=== PATIENT | female | born 2005 | race Two or more races ===

== ENCOUNTER → 2023-02-17 09:59 | Outpatient (BNV) | payer OTHER, SELFPAY ==
--- NOTE | 2023-02-17 10:00 | MHC.OFFVIS ---
Intake Intake Visit Reasons: Amb Documentation Allergies No Known Allergies Allergy (Verified 06/03/22 10:01) HPI HPI Comments History of Present Illness Details student coming in w/ complaints of diarrhea. she states that her stomach was hurting when she got on the bus but it became diarrhea. she doesn't feel terribly well. her eyes are burning. daughter is home w sore throat and fever and cough. she hasn't tested for covid because didn't have any tests. she was given a test to do now - negative and a few boxes of tests to take home. if child is symptomatic she will call/go into [address] and she will get her seen if she is too sick to come to daycare tomorrow. PENDING SALE TO [facility] Medical History Anxiety and depression Dysmenorrhea Eating disorder in remission Vaccination hesitancy by patient Family History Mother No problems noted. Father No problems noted. Sister No problems noted. Sister No problems noted. Sister No problems noted. Brother Asthma Review of Systems Const Details: Counseling visit: All systems reviewed & are unremarkable except as noted in HPI and below Reports as per HPI Resp Reports as per HPI GI Reports as per HPI Musc Reports as per HPI Neuro Reports as per HPI Psych Reports as per HPI Physical Exam Const General: cooperative, healthy appearing and no acute distress Nutritional Appearance: well nourished Orientation/consciousness: oriented to person Limitations: no limitations HEENT Other: wnl Ears: hearing grossly normal bilaterally General nose exam: Normal external nose present (no discharge noted, no congestion) Mouth: oropharynx normal Eyes Other: tearing, no redness noted Chest Other: easy breathing Resp Other: no cough Effort & Inspection: normal respiratory effort and able to speak in complete sentences Skin Other: normal in appearance Neuro General: oriented to person Cognition (Neuro): normal cognition Gait exam (Neuro): Normal gait present Psych Other: no issues noted, she is talking comfortably and her worry doesn't seem out of range for the problems at hand Mental Status: mental status grossly normal Speech and movement: Clear speech present Affect: normal affect Attitude: cooperative Thought process: Normal thought process present Assessment & Plan Assessment & Plan (1) Diarrhea: Code(s): R19.7 - Diarrhea, unspecified Plan: general guidance/teaching, but also encouraged to do covid tests q 48hrs after todays Coding Level of Care Code Est Pt Level 3 (62575) Diagnoses Diarrhea R19.7 Time Spent (min) 15 Comment counseling and teaching
== END ==
PROVIDERS: PCP Nurse Practitioner Family; Visit Provider Nurse Practitioner Family
DX: R19.7 Diarrhea, unspecified (principal)
CPT/HCPCS: 99213

== ENCOUNTER → 2023-05-19 09:50 | Outpatient (BNV) | payer OTHER, SELFPAY ==
--- NOTE | 2023-05-19 09:50 | MHC.OFFVIS ---
Intake Intake Visit Reasons: Amb Documentation Allergies No Known Allergies Allergy (Verified 06/03/22 10:01) HPI HPI Comments History of Present Illness Details c/o stomach pain.? Hurting and nausea.?? Apr 17. went to [facility] ? had a stmach infection ?a little ball in her stomach??this was worse, pain in back and chest . states not gallbladder. (at end of visit she finds a picture of what she was told was wrong ? stomach ulcer?she had 3 medications and finished them all ? hasn?t gone back for follow up)? Hasn?t been pooping a lot. ?Wonders if constipated.? A little yesterday ? but she doesn?t feel that way right now. (long conversation about constipation) Drinks a lot of water/gingerale. Carrots likes spinach but hasn?t had many vegetables (made a soup ? month ago)? discussed fiber. Wt 117 at last appt was at 112.? She used to have an eating disorder so they wanted her to keep weight on. She is no obvious distress but states that she is so uncomfortable can?t stay in school.? Agreed to excuse her and if she is not better tomorrow she will go to md.? PLAN: to home, excused from school until tomorrow if not improved will call her PCP to get worked up further. Teaching done about dietary control both of current symptoms and to avoid constipation. [facility] Medical History Anxiety and depression Dysmenorrhea Vaccination hesitancy by patient Eating disorder in remission Family History Mother No problems noted. Father No problems noted. Sister No problems noted. Sister No problems noted. Sister No problems noted. Brother Asthma Review of Systems Const Details: Counseling visit: All systems reviewed & are unremarkable except as noted in HPI and below Reports as per HPI Resp Reports as per HPI GI Reports as per HPI Musc Reports as per HPI Neuro Reports as per HPI Psych Reports as per HPI Physical Exam Const General: cooperative, healthy appearing and no acute distress Nutritional Appearance: well nourished Orientation/consciousness: oriented to person Limitations: no limitations HEENT Other: wnl Eyes Other: wnl Chest Other: easy breathing Resp Effort & Inspection: able to speak in complete sentences GI Other: benign Inspection: Yes normal to inspection Skin Other: normal in appearance Neuro General: oriented to person Psych Other: see HPI Mental Status: mental status grossly normal Speech and movement: Clear speech present Attitude: cooperative Thought process: Normal thought process present Assessment & Plan Assessment & Plan (1) Abdominal pain: Code(s): R10.9 - Unspecified abdominal pain Plan: PLAN: to home, excused from school until tomorrow if not improved will call her PCP to get worked up further. Teaching done about dietary control both of current symptoms and to avoid constipation. (2) Eating disorder in remission: Code(s): F50.9 - Eating disorder, unspecified Plan: counseling done and onsite staff aware Coding Level of Care Code Est Pt Level 3 (95480) Diagnoses Abdominal pain R10.9 Eating disorder in remission F50.9 Time Spent (min) 20 Comment teaching,counseling, coord care
== END ==
PROVIDERS: PCP Nurse Practitioner Family; Visit Provider Nurse Practitioner Family
DX: R10.9 Unspecified abdominal pain (principal); F50.9 Eating disorder, unspecified
CPT/HCPCS: 99213

== ENCOUNTER → 2023-06-17 09:37 | Outpatient (BNV) | payer OTHER, SELFPAY ==
--- NOTE | 2023-06-17 09:37 | MHC.OFFVIS ---
Intake Intake Visit Reasons: Amb Documentation Allergies No Known Allergies Allergy (Verified 06/03/22 10:01) HPI HPI Comments History of Present Illness Details headache yesterday. wanted to see me yesterday but no one was here - now headache is better. no meds. has stomach ache. pain is upper abdomen - points to the center of upper abdomen. she was on 3 medications but they are finished. she doesn't know the names of them. Amox, and clarithromycin. has one to take before meals but she hasn't been taking those. she doesn't know the name. [facility] and said [facility] for [facility] picker. I called [facility] - no response/wait. asked about NSAID use, states no - except when has cramps (discussed taking tylenol if possible). she is worried she will need surgery, history of eating disorder. I suspect it is difficult for her to time and anticipate meals in order to take the med before eats. PE: no acute distress noted, color good. she appears anxious about the problem/surgery and [facility] Medical History (Updated 06/17/23 @ 09:57 by PRAFUL Bahena) History of gastric ulcer Anxiety and depression Dysmenorrhea Vaccination hesitancy by patient Eating disorder in remission Family History Mother No problems noted. Father No problems noted. Sister No problems noted. Sister No problems noted. Sister No problems noted. Brother Asthma Review of Systems Const Details: Counseling visit: All systems reviewed & are unremarkable except as noted in HPI and below Reports as per HPI Resp Reports as per HPI GI Reports as per HPI Musc Reports as per HPI Neuro Reports as per HPI Psych Reports as per HPI Physical Exam Const General: cooperative, healthy appearing and no acute distress Nutritional Appearance: well nourished Orientation/consciousness: oriented to person Limitations: no limitations HEENT Other: wnl Eyes Other: wnl Chest Other: easy breathing Resp Effort & Inspection: able to speak in complete sentences GI Other: no palp because student anxious and she doesn't appear in physical distress (more anxious) Inspection: Yes normal to inspection Skin Other: normal in appearance Neuro General: oriented to person Psych Other: see HPI Appearance: grossly normal Mental Status: mental status grossly normal Speech and movement: Clear speech present Affect: Anxious affect present Thought process: Normal thought process present Assessment & Plan Assessment & Plan (1) Abdominal pain: Code(s): R10.9 - Unspecified abdominal pain Plan: student will get med from home and either bring it in or will take a pic - better teaching w/ that medication in mind. reassurance and support. 3 tums given now (2) History of gastric ulcer: Code(s): Z87.11 - Personal history of peptic ulcer disease Plan teaching as above, return tomorrow w/ medication or pic of med for further support and teaching Coding Level of Care Code Est Pt Level 3 (91174) Diagnoses Abdominal pain R10.9 History of gastric ulcer Z87.11 Time Spent (min) 15
== END ==
PROVIDERS: PCP Nurse Practitioner Family; Visit Provider Nurse Practitioner Family
DX: R10.9 Unspecified abdominal pain (principal); Z87.11 Personal history of peptic ulcer disease
CPT/HCPCS: 99213

== ENCOUNTER → 2023-06-23 10:44 | Outpatient (BNV) | payer OTHER, SELFPAY ==
--- NOTE | 2023-06-23 10:44 | A.OFFVIS_ITS ---
Intake Intake Visit Reasons: Amb Documentation Allergies No Known Allergies Allergy (Verified 06/03/22 10:01) HPI HPI Comments History of Present Illness Details student is here w/ stomach pain. she has meds: omeprazole 20mg. EXTENSIVE Conversation about her unwillingness to take this medication - she has never taken it, was given 3 pills and took all the other 2 but refused this one. it states on the bottle that she should take w/ meals. she feels (I think) that it will make her eat and she won't do that. she is willing to eat and drink but not here. showed her a bottle of omeprazole acid endoscopy nurse and reviewed the point is to help w/ pain. and to protect her stomach from acid. (also has tylenol 325 in generic name) [facility] Medical History (Updated 06/23/23 @ 10:48 by PRAFUL Bahena) Obsessive thinking History of gastric ulcer Anxiety and depression Dysmenorrhea Vaccination hesitancy by patient Eating disorder in remission Family History Mother No problems noted. Father No problems noted. Sister No problems noted. Sister No problems noted. Sister No problems noted. Brother Asthma Review of Systems Const Details: Counseling visit: All systems reviewed & are unremarkable except as noted in HPI and below Reports as per HPI Resp Reports as per HPI GI Reports as per HPI Musc Reports as per HPI Neuro Reports as per HPI Psych Reports as per HPI Physical Exam Const General: cooperative, healthy appearing and no acute distress Nutritional Appearance: well nourished Orientation/consciousness: oriented to person Limitations: no limitations HEENT Other: wnl Eyes Other: wnl Chest Other: easy breathing Resp Effort & Inspection: able to speak in complete sentences Skin Other: normal in appearance Neuro General: oriented to person Psych Other: see HPI Mental Status: mental status grossly normal Speech and movement: Clear speech present Attitude: cooperative Thought process: Normal thought process present Assessment & Plan Assessment & Plan (1) History of gastric ulcer: Code(s): Z87.11 - Personal history of peptic ulcer disease Plan: long converation w/ student and her onsite counselor supervisor customer services about the issues of taking meds here. (2) Abdominal pain: Code(s): R10.9 - Unspecified abdominal pain Plan: working w/ her on the fear of taking the omeprazole 1) contact her therapist 2) contact her PCP 3)excuse her to go home and take meds and return tomorrow to explore further (3) Obsessive thinking: Code(s): F42.8 - Other obsessive-compulsive disorder Plan: see above Coding Level of Care Code Est Pt Level 4 (13303) Diagnoses History of gastric ulcer Z87.11 Abdominal pain R10.9 Obsessive thinking F42.8 Time Spent (min) 45 Comment extensive counseling and coord of care
== END ==
PROVIDERS: PCP Nurse Practitioner Family; Visit Provider Nurse Practitioner Family
DX: Z87.11 Personal history of peptic ulcer disease (principal); R10.9 Unspecified abdominal pain; F42.8 Other obsessive-compulsive disorder
CPT/HCPCS: 99214

== ENCOUNTER → 2023-07-20 09:47 | Outpatient (BNV) | payer OTHER, SELFPAY ==
--- NOTE | 2023-07-20 09:47 | A.OFFVIS_ITS ---
Intake Intake Visit Reasons: Amb Documentation Allergies No Known Allergies Allergy (Verified 06/03/22 10:01) HPI HPI Comments History of Present Illness Details student here w/ complaints of stuffy nose and sore throat. she is wearing 2 masks in classroom. asked if tested covid - yes, negative but will repeat here. done - negative. conversation w/ her counselor here as student doesn't seem very engaged in the goals for education here. states she is not mandated and not very engaged in any work. she has a lot of anxiety about germs. student tells me that she got sick from her sisters child who had just been vaccainated and now has a fever and she was holding the bsby and now she is sick. 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 but she states that her nose is really runny and her throat quite sore. covid test negative. throat minimal redness. nose is congested. student excused from school - teachign re: symptomatic managment. REPLACED BY [facility] Medical History Obsessive thinking History of gastric ulcer Anxiety and depression Dysmenorrhea Vaccination hesitancy by patient Eating disorder in remission Family History Mother No problems noted. Father No problems noted. Sister No problems noted. Sister No problems noted. Sister No problems noted. Brother Asthma Review of Systems Const Details: Counseling visit: All systems reviewed & are unremarkable except as noted in HPI and below Reports as per HPI ENT Reports as per HPI, Reports nasal congestion and Reports sore throat Card Reports no additional complaints Resp Reports as per HPI and Reports no additional complaints GI Reports as per HPI Musc Reports as per HPI Neuro Reports as per HPI Psych Reports as per HPI Physical Exam Const General: cooperative, healthy appearing and no acute distress Nutritional Appearance: well nourished Orientation/consciousness: oriented to person Limitations: no limitations HEENT Other: wnl Eyes Other: wnl Chest Other: easy breathing Resp Effort & Inspection: able to speak in complete sentences Skin Other: normal in appearance Neuro General: oriented to person Psych Other: see HPI Mental Status: mental status grossly normal Speech and movement: Clear speech present Attitude: cooperative Thought process: Normal thought process present Assessment & Plan Assessment & Plan (1) Upper respiratory infection, viral: Code(s): J06.9 - Acute upper respiratory infection, unspecified (2) Anxiety and depression: Code(s): F41.9 - Anxiety disorder, unspecified; F32.A - Depression, unspecified Plan Support offered if student wants to stay in school - she is minimally engaged even when feeling well, high level of anxiety about public spaces/germs. Support given, teachign done, coord care w/ her on-site counselor and student excused for the day. possible covid w/ negative test - teaching done Coding Level of Care Code Est Pt Level 3 (55977) Diagnoses Upper respiratory infection, viral J06.9 Anxiety and depression F41.9; F32.A Time Spent (min) 20
== END ==
PROVIDERS: PCP Nurse Practitioner Family; Visit Provider Nurse Practitioner Family
DX: J06.9 Acute upper respiratory infection, unspecified (principal); F41.9 Anxiety disorder, unspecified; F32.A Depression, unspecified
CPT/HCPCS: 99213

== ENCOUNTER → 2023-10-07 09:37 | Outpatient (BNV) | payer OTHER, SELFPAY ==
--- NOTE | 2023-10-07 09:37 | MHC.OFFVIS ---
Intake Visit Reasons: Amb Documentation Allergies No Known Allergies Allergy (Verified 06/03/22 10:01) HPI Comments Details: student here because fell 2 days ago on field trip and abraided knee. wants it checked. knee moves fine- no redness, no change in mobility. no swelling. [facility] Medical History Obsessive thinking History of gastric ulcer Anxiety and depression Dysmenorrhea Vaccination hesitancy by patient Eating disorder in remission Family History Mother No problems noted. Father No problems noted. Sister No problems noted. Sister No problems noted. Sister No problems noted. Brother Asthma Review of Systems Const All systems reviewed & are unremarkable except as noted in HPI and below Reports as per HPI Resp Reports as per HPI GI Reports as per HPI Musc Reports as per HPI Neuro Reports as per HPI Psych Reports as per HPI Physical Exam Const General: cooperative, healthy appearing and no acute distress Nutritional Appearance: well nourished Orientation/consciousness: oriented to person Limitations: no limitations HEENT Other: wnl Eyes Other: wnl Chest Other: easy breathing Resp Effort & Inspection: able to speak in complete sentences Skin Other: left knee abraided - mostly scabbed and healing but center of cut still serous-sang drainage. no redness no swelling. no heat. Trauma: abrasion Neuro General: oriented to person Extrem General: Yes normal to inspection, Yes full ROM and Yes normal gait Left lower extremity: normal to inspection, full ROM and edema (no swelling nor edema noted) Psych Other: mild anxiety - reason for visit, indicates anxiety but no anxious affect noted this visit, other than student wearing mask (always) Appearance: well kempt Mental Status: mental status grossly normal Speech and movement: Clear speech present Attitude: cooperative Thought process: Normal thought process present Assessment & Plan Assessment & Plan (1) Abrasion, left knee, initial encounter: Code(s): S80.212A - Abrasion, left knee, initial encounter Category: Medical Plan support to generally anxious student, reassurance and support, bacitracin and bandaid applied Coding Level of Care Code Est Pt Level 2 (32264) Diagnoses Abrasion, left knee, initial encounter S80.212A Time Spent (min) 10 Comment coord care w. onsite staff
== END ==
PROVIDERS: PCP Nurse Practitioner Family; Visit Provider Nurse Practitioner Family
DX: S80.212A Abrasion, left knee, initial encounter (principal)
CPT/HCPCS: 99212

== ENCOUNTER → 2024-02-17 09:37 | Outpatient (BNV) | payer OTHER, SELFPAY ==
--- NOTE | 2024-02-17 09:37 | A.OFFVIS_ITS ---
Intake Visit Reasons: Amb Documentation Allergies No Known Allergies Allergy (Verified 06/03/22 10:01) HPI Comments Details: was seen for cough and was treated w/ robitussin, covid rapid was negative, always masks and continues to mask, cough drops - not excused from school. feeling better today - reviewed phq 9 and crafft screening tools [facility] Medical History Obsessive thinking History of gastric ulcer Anxiety and depression Dysmenorrhea Vaccination hesitancy by patient Eating disorder in remission Family History Mother No problems noted. Father No problems noted. Sister No problems noted. Sister No problems noted. Sister No problems noted. Brother Asthma Review of Systems Const Details: Counseling visit: All systems reviewed & are unremarkable except as noted in HPI and below Reports as per HPI Resp Reports as per HPI GI Reports as per HPI Musc Reports as per HPI Neuro Reports as per HPI Psych Reports as per HPI Physical Exam Const General: cooperative, healthy appearing and no acute distress Nutritional Appearance: well nourished Orientation/consciousness: oriented to person Limitations: no limitations HEENT Other: wnl Eyes Other: wnl Chest Other: easy breathing Resp Effort & Inspection: able to speak in complete sentences Skin Other: normal in appearance Neuro General: oriented to person Psych Other: see HPI Mental Status: mental status grossly normal Speech and movement: Clear speech present Attitude: cooperative Thought process: Normal thought process present Quality Reporting (2019) Depression/Bipolar (159/160/161/177) PHQ-9: Total score: 3 Assessment & Plan Assessment & Plan (1) Upper respiratory infection, viral: Code(s): J06.9 - Acute upper respiratory infection, unspecified Category: Medical (2) Anxiety and depression: Code(s): F41.9 - Anxiety disorder, unspecified; F32.A - Depression, unspecified Category: Medical (3) Counseling and coordination of care: Code(s): Z71.89 - Other specified counseling Category: Medical Plan mood seems stable and good relationship w/ onsite counselor. continue to monitor as student has a history of issues that have gotten in her way Coding Level of Care Code Est Pt Level 2 (67607) Diagnoses Upper respiratory infection, viral J06.9 Anxiety and depression F41.9; F32.A Counseling and coordination of care Z71.89 Additional Codes CRAFFT Assessment Charge - Crafft: CRAFFT [id number] ([id number]) Time Spent (min) 15 Comment general counseling and coord care PHQ-9 Over the last 2 weeks, how often have you been bothered by any of the following problems? 1. Little interest or pleasure in doing things: not at all 2. Feeling down, depressed, or hopeless: not at all 3. Trouble falling or staying asleep, or sleeping too much: more than half the days 4. Feeling tired or having little energy: several days 5. Poor appetite or overeating: not at all 6. Feeling bad about yourself - or that you are a failure or have let yourself or your family down: not at all 7. Trouble concentrating on things, such as reading the newspaper or watching television: not at all 8. Moving or speaking so slowly that other people could have noticed. Or the opposite - being so fidgety or restless that you have been moving around a lot more than usual: not at all 9. Thoughts that you would be better off or of hurting yourself in some way: not at all Total score: 3 Depression Screening Interpretation: Negative Depression Screening Done: Yes [id number] - PHQ-9 Billing: Yes Source: Developed by Drs. Maicol Ni, Neyda Finley, Ayo Pike and colleagues, with an educational kyung from [employer]. CRAFFT Screening Tool PART A: In the PAST 12 MONTHS, did you: Drink any alcohol (more than few sips)? (Do not count sips of alcohol taken during family or latter-day events.): No Smoke any marijuana or hashish?: No Use anything else to get high? (includes illegal drugs, over the counter/prescription drugs, or things that you sniff/baker?): No PART B: If answered YES to ANY above: Have you ever been in a CAR driven by someone (including yourself) who was high or had been using alcohol or drugs?: No Do you ever use alcohol or drugs to RELAX, feel better about yourself, or fit in?: No Do you ever use alcohol or drugs while you are by yourself, or ALONE?: No Do you ever FORGET things while using alcohol or drugs?: No Do your FAMILY or FRIENDS ever tell you that you should cut down on your drinking or drug use?: No Have you ever gotten into TROUBLE while you were using alcohol or drugs?: No BILLIET Assessment Charge Billiet: KAT [id number]
== END ==
PROVIDERS: PCP Nurse Practitioner Family; Visit Provider Nurse Practitioner Family
DX: J06.9 Acute upper respiratory infection, unspecified (principal); F41.9 Anxiety disorder, unspecified; F32.A Depression, unspecified; Z71.89 Other specified counseling
CPT/HCPCS: 96160; 99212

== ENCOUNTER → 2024-02-22 09:44 | Outpatient (BNV) | payer OTHER, SELFPAY ==
--- NOTE | 2024-02-22 09:45 | MHC.OFFVIS ---
Intake Visit Reasons: Amb Documentation Allergies No Known Allergies Allergy (Verified 06/03/22 10:01) HPI Comments Details: student coming in w/ complaints of pain under right breast. she points to her rib cage. states that it is burning and causes her to avoid coughing and eating. (history of eating disorder). teaching done extensively. she is coughing less since last saw provider here last week. (5 negative covid rapid tests). lungs are clear and pain is reproduced by ant/post compression of ribs, minially on lateral compression. 3 ibuprofen given now w encouragement to eat and brace w/ cough (although coughing is not profound) PFSH Medical History Obsessive thinking History of gastric ulcer Anxiety and depression Dysmenorrhea Vaccination hesitancy by patient Eating disorder in remission Family History Mother No problems noted. Father No problems noted. Sister No problems noted. Sister No problems noted. Sister No problems noted. Brother Asthma Review of Systems Const Details: Counseling visit: All systems reviewed & are unremarkable except as noted in HPI and below Reports as per HPI Resp Reports as per HPI, Reports cough (improved, but afraid to cough) and Reports pain with cough GI Details: afraid to eat because of pain in ribs Reports no additional complaints Musc Reports no additional complaints Neuro Reports no additional complaints Psych Reports as per HPI Physical Exam Const General: cooperative, healthy appearing and no acute distress Nutritional Appearance: well nourished Orientation/consciousness: oriented to person Limitations: no limitations HEENT Other: wnl Eyes Other: wnl Chest Other: easy breathing Resp Effort & Inspection: able to speak in complete sentences Skin Other: normal in appearance Neuro General: oriented to person Psych Other: see HPI Mental Status: mental status grossly normal Speech and movement: Clear speech present Attitude: cooperative Thought process: Normal thought process present Assessment & Plan Assessment & Plan (1) Counseling and coordination of care: Code(s): Z71.89 - Other specified counseling Category: Medical (2) Upper respiratory infection, viral: Code(s): J06.9 - Acute upper respiratory infection, unspecified Category: Medical (3) Costochondritis, acute: Code(s): M94.0 - Chondrocostal junction syndrome [Tietze] Category: Medical Plan extensive teaching - to take 3 ibuprofen (600mg) every 6-8 hours for 48 hours if pain continues and brace if coughing, encouraged to eat regardless (history of eating disorder) and to return to [employer], or here if pain continues past this time. Coding Level of Care Code Est Pt Level 3 (93567) Diagnoses Counseling and coordination of care Z71.89 Upper respiratory infection, viral J06.9 Costochondritis, acute M94.0 Time Spent (min) 20 Comment see above
== END ==
PROVIDERS: PCP Nurse Practitioner Family; Visit Provider Nurse Practitioner Family
DX: J06.9 Acute upper respiratory infection, unspecified (principal); M94.0 Chondrocostal junction syndrome [Tietze]; Z71.89 Other specified counseling
CPT/HCPCS: 99213

== ENCOUNTER → 2024-07-27 10:14 | Outpatient (BNV) | payer OTHER, SELFPAY ==
--- NOTE | 2024-07-27 10:14 | MHC.OFFVIS ---
Intake Visit Reasons: Amb Documentation Allergies No Known Allergies Allergy (Verified 06/03/22 10:01) HPI Comments Details: Student coming to me, not feeling well . she didn't want to come to school but attendance is always an issue w/ her. Spoke to her counselor before visit but she was unaware that nani had signed up for me. she presents w/ minor nasal congestion, and a 'sore throat', and a headache. she is not - she is no longer on control but they don't have sex a lot and when they do she is timing it right and he 'pulls out' so she has no concerns. covid test was run in office and is negative. she doesn't like being sick in the school as the other students can be mean about it just stay home if youre sick [facility] Medical History Obsessive thinking History of gastric ulcer Anxiety and depression Dysmenorrhea Vaccination hesitancy by patient Eating disorder in remission Family History Mother No problems noted. Father No problems noted. Sister No problems noted. Sister No problems noted. Sister No problems noted. Brother Asthma Female Reproductive History Menstrual control method: none Review of Systems Const All systems reviewed & are unremarkable except as noted in HPI and below Eyes Reports no additional complaints ENT Details: slightly stuffy nose and sore throat - Reports as per HPI Card Reports no additional complaints Resp Details: no cough Reports no additional complaints Reports no additional complaints Musc Reports no additional complaints Psych Reports no additional complaints Physical Exam Const Other: afebrile (97.8), appears generally ok w/ mask and slight sniffling General: no acute distress Nutritional Appearance: average body habitus Orientation/consciousness: patient oriented x3 HEENT Ears: hearing grossly normal bilaterally General nose exam: Nasal discharge present (minor, clear) Mouth: moist mucous membranes Teeth and gingiva: dentition normal Throat: Yes posterior oropharynx normal (slightly red) Skin General skin exam: no rashes or lesions noted Neuro General: patient oriented x3 Psych Appearance: grossly normal (her baseline - slightly anxious) Assessment & Plan Assessment & Plan (1) Upper respiratory infection, viral: Code(s): J06.9 - Acute upper respiratory infection, unspecified Category: Medical (2) Counseling and coordination of care: Code(s): Z71.89 - Other specified counseling Category: Medical Plan student generally in need of support - so she was excused from sschool and went to counselor - who talked her into staying in class. counselor and I then conferred about approach to student who often has a lot of bodily complaints and anxiety. agreed this was good tactic Coding Level of Care Code Est Pt Level 3 (73553) Diagnoses Upper respiratory infection, viral J06.9 Counseling and coordination of care Z71.89 Time Spent (min) 25 Comment counseling and coord care
== END ==
PROVIDERS: PCP Nurse Practitioner Family; Visit Provider Nurse Practitioner Family
DX: J06.9 Acute upper respiratory infection, unspecified (principal); Z71.89 Other specified counseling
CPT/HCPCS: 99213

== ENCOUNTER → 2024-09-07 10:26 | Outpatient (BNV) | payer OTHER, SELFPAY ==
--- NOTE | 2024-09-07 10:26 | MHC.OFFVIS ---
Intake Visit Reasons: Amb Documentation Allergies No Known Allergies Allergy (Verified 06/03/22 10:01) HPI Comments Details: student is here for test, but I also have phq9 score of 8 which seems new for her. my impression is that student is somewhat compromised in terms of her abilities to understand and convey information 1) concerns: she states that she has a missed period, doesn't want to be . she is confusing re: when her last period is - but it seems that she stopped depo in june - missed appts on and the - and states bled soon after that. she also states that she had a period in july (usually dates her periods by her sisters) and in august when her sister got hers - she didn't. did a test then and was negative.. her test today is negative. discused control as she is very clear she does'nt want ot get . she states that 'he pulls out'. she doesn't want to use condoms because it makes her thing really red. she never tried other methods but 'just want my period'...it is unclear whether she wants to get THIS period and then would consider resuming depo, or wants to get regular periods - and would prefer control pills. she states that she would be able to remember pills. but doesn't want to start something yet - beazuse it would mess up her period. she seems questionable re: her ability to take pills - see below and counselro states that she was VERY reluctant to taking omeprazole for stomach issue (she states that she did eventually take and feels better) 2)states that her primary doc thinks she's depressed and rx'd something. she finds it in a text w/ therapist but she states (in a very circuitous manner) that she has -- a ton of meds and three meds and was prescribed something for anxiety as well - doesn't know that name and also a third med - she doesn't know. I called [facility] and the only current meds relevant (other prn - not related)...was sertraline 25mg once a day, and zyrtec 10 once a day, she completed omeprazole for 7 days. and Escitalopram was he presumes d/c'd and replaced w/ sertrainline. she takes sertraline ONLY when she feels bad. Long conversation about this and repeated w/ counselor present so she could work w her on this issue. discussed the importnace of being consistent w what she is taking and what she is telling doc she is taking. re: depression - she states that I get mad a lot, grumpy, cryin - yestrday - she states she cries when she is mad. she is unable to present a linear history. dififculty falling asleep - even this is hard to undersatnd. states tyring to get child to sleep in same room, but then states that child is asleep and she can't fall asleep - was up 10-2 last night. states watches television and then states that all she does is close her eyes to sleep. discussed w/ her counselor [facility] Medical History Obsessive thinking History of gastric ulcer Anxiety and depression Dysmenorrhea Vaccination hesitancy by patient Eating disorder in remission Family History Mother No problems noted. Father No problems noted. Sister No problems noted. Sister No problems noted. Sister No problems noted. Brother Asthma Review of Systems Const Details: Counseling visit: All systems reviewed & are unremarkable except as noted in HPI and below Reports as per HPI Resp Reports as per HPI GI Reports as per HPI Musc Reports as per HPI Neuro Reports as per HPI Psych Reports as per HPI Physical Exam Const General: cooperative, healthy appearing and no acute distress Nutritional Appearance: well nourished Orientation/consciousness: oriented to person Limitations: no limitations HEENT Other: wnl Eyes Other: wnl Chest Other: easy breathing Resp Effort & Inspection: able to speak in complete sentences Skin Other: normal in appearance Neuro General: oriented to person Psych Other: see HPI Mental Status: mental status grossly normal Speech and movement: Clear speech present Attitude: cooperative Thought process: Normal thought process present Assessment & Plan Assessment & Plan (1) Counseling and coordination of care: Code(s): Z71.89 - Other specified counseling Category: Medical (2) Obsessive thinking: Code(s): F42.8 - Other obsessive-compulsive disorder Category: Medical (3) Anxiety and depression: Code(s): F41.9 - Anxiety disorder, unspecified; F32.A - Depression, unspecified Category: Medical (4) control counseling: Code(s): Z30.09 - Encounter for other general counseling and advice on contraception Category: Medical (5) Irregular menses: Code(s): N92.6 - Irregular menstruation, unspecified Category: Medical Plan challenging counseling - because student is known to have obsessive concerns - tried to incorportate that into discussion of taking daily meds vs 'when needed'. student is difficult historian - seems because of limited understanding and anxiety complicating. so we met for quite a while and then repeated wtih her counselor who has a long standing relationship w/ student. plan is to continue to monitor all these areas as a team Orders: Orders AMB HCG Urine Test Today N92.6 - Irregular menstruation, unspecified, Z32.02 - Encounter for test, result negative Coding Level of Care Code Est Pt Level 5 (08612) Diagnoses Counseling and coordination of care Z71.89 Obsessive thinking F42.8 Anxiety and depression F41.9; F32.A control counseling Z30.09 Irregular menses N92.6 Time Spent (min) 60 Comment extensive counseling and coord care
== END ==
PROVIDERS: PCP Nurse Practitioner Family; Visit Provider Nurse Practitioner Family
DX: N92.6 Irregular menstruation, unspecified (principal); F41.9 Anxiety disorder, unspecified; F42.8 Other obsessive-compulsive disorder; F32.A Depression, unspecified; Z30.09 Encounter for other general counseling and advice on contraception; Z71.89 Other specified counseling
CPT/HCPCS: 99215; 99417

== ENCOUNTER → 2024-09-27 09:42 | Outpatient (BNV) | payer OTHER, SELFPAY ==
--- NOTE | 2024-09-27 09:42 | A.OFFVIS_ITS ---
Intake Visit Reasons: Amb Documentation Allergies No Known Allergies Allergy (Verified 06/03/22 10:01) HPI Comments Details: student wants preg test. she feels like throwing up all the time (history of GI issue and not taking the omeprazole as directed) but primarily she is worreid about and wants to rule that out. she says that she had depo but june, got period in jul but nothing in august or september yet. they have sex - he pulls out , no condoms used because they irritate her, (gave her non- latex condoms to use vbut she hasn't used them). he doesn't want her either. and she is worried that if she is it will be hard to tell him. discussed her feelings about before test run - she says if she is she would cope with it (no space in apartment she is sharing a room w/ her daughter, wanted to finish school etc) so she doesn't really want to get - reinforced her behavior in that she will likely get if not using some control - which could just be the non-latex condoms. she wants a blood test done to be sure that she isn't . last unprotected sex was maybe 2-3 weeks ago as he doesn't live w/ her. she has a follow up appt Sep 06 w/ her pcp in [facility]. [facility] Medical History Obsessive thinking History of gastric ulcer Anxiety and depression Dysmenorrhea Vaccination hesitancy by patient Eating disorder in remission Family History Mother No problems noted. Father No problems noted. Sister No problems noted. Sister No problems noted. Sister No problems noted. Brother Asthma Review of Systems Const Details: Counseling visit: All systems reviewed & are unremarkable except as noted in HPI and below Reports as per HPI Resp Reports as per HPI GI Reports as per HPI Musc Reports as per HPI Neuro Reports as per HPI Psych Reports as per HPI Physical Exam Const General: cooperative, healthy appearing and no acute distress Nutritional Appearance: well nourished Orientation/consciousness: oriented to person Limitations: no limitations HEENT Other: wnl Eyes Other: wnl Chest Other: easy breathing Resp Effort & Inspection: able to speak in complete sentences Skin Other: normal in appearance Neuro General: oriented to person Psych Other: see HPI Mental Status: mental status grossly normal Speech and movement: Clear speech present Attitude: cooperative Thought process: Normal thought process present Assessment & Plan Assessment & Plan (1) Irregular menses: Code(s): N92.6 - Irregular menstruation, unspecified Category: Medical (2) Counseling and coordination of care: Code(s): Z71.89 - Other specified counseling Category: Medical (3) control counseling: Code(s): Z30.09 - Encounter for other general counseling and advice on contraception Category: Medical Plan consultation w/ her counselor prior to and after visit. student is using no control and coming for test. extensive counseling done during vist to try and connect her behaviors w/ her intention - she requests blood test, this was ordered / counselor will continue wtih this counseling idea trying to get her to commit to a more reliable method of control to match the intention of not desiring . Orders: Orders AMB HCG Urine Test Today N92.6 - Irregular menstruation, unspecified, Z32.02 - Encounter for test, result negative HCG Quantitative Today N92.6 - Irregular menstruation, unspecified Coding Level of Care Code Est Pt Level 4 (05712) Diagnoses Irregular menses N92.6 Counseling and coordination of care Z71.89 control counseling Z30.09 Time Spent (min) 35 Comment counseling and coord care
== END ==
PROVIDERS: PCP Nurse Practitioner Family; Visit Provider Nurse Practitioner Family
DX: N92.6 Irregular menstruation, unspecified (principal); Z71.89 Other specified counseling; Z30.09 Encounter for other general counseling and advice on contraception
CPT/HCPCS: 99214

== ENCOUNTER 2024-09-27 11:00 | Outpatient (REF) | payer OTHER, SELFPAY ==
[2024-09-27 12:45] LABS: HCG Quantitative < 2 mIU/mL
== END 2024-09-27 11:01 | disposition home or self-care (01) ==
LOC: HO.LAB 11:00
PROVIDERS: Visit Provider Nurse Practitioner Family
DX: N92.6 Irregular menstruation, unspecified (principal)
CPT/HCPCS: 36415; 84702

== ENCOUNTER → 2024-11-08 10:08 | Outpatient (BNV) | payer OTHER, SELFPAY ==
--- NOTE | 2024-11-08 10:08 | A.OFFVIS_ITS ---
Intake Visit Reasons: Amb Documentation Allergies No Known Allergies Allergy (Verified 06/03/22 10:01) HPI Comments Details: student states that she just pooped and saw blood - on TP and a little in the bowl. she is worried. she hasn't gotten her period yet as well. she has appt w/ pcp to discuss this november 22. 1) rectal bleed: just noted today. she felt inside and feels a little 'ball'. no itching. she is constipated and this morning was trying hard to poop and pooped a small round ball and wiped noted blood. previous episode her doctor diagnosed 'those little creatures' - no itching noted - just pain. she states that her appetite is limited - she doesn't like to eat first thing in the morning and doesn't feel much like eating at all. exam - [id number] - no hemmorhoids seen and pt refused internal exam in school and anxiety 2) irreg menses: bhcg was neg - last month - she will see her pcp - but we ran a hcg urine today - was negative. she had sex I think yestrday [facility] Medical History (Updated 11/08/24 @ 10:15 by PRAFUL Bahena) Chronic constipation Rectal bleeding Obsessive thinking History of gastric ulcer Anxiety and depression Dysmenorrhea Vaccination hesitancy by patient Eating disorder in remission Family History Mother No problems noted. Father No problems noted. Sister No problems noted. Sister No problems noted. Sister No problems noted. Brother Asthma Female Reproductive History Menstrual control method: none Review of Systems Const Details: Counseling visit: All systems reviewed & are unremarkable except as noted in HPI and below Reports as per HPI Resp Reports as per HPI GI Reports as per HPI Musc Reports as per HPI Neuro Reports as per HPI Psych Reports as per HPI Physical Exam Const General: cooperative, healthy appearing and no acute distress Nutritional Appearance: well nourished Orientation/consciousness: oriented to person Limitations: no limitations HEENT Other: wnl Eyes Other: wnl Chest Other: easy breathing Resp Effort & Inspection: able to speak in complete sentences GI Inspection: Yes normal to inspection Palpation (GI): Soft to palpation Rectal Exam - Female: deferred (pt refused internal see hpi), visual inspection normal, normal sphincter tone and hemorrhoids (none visualized but student stated that she felt one inside - refused exam) External Female Exam: normal external appearance (shaved) Skin Other: normal in appearance Neuro General: oriented to person Psych Other: see HPI Appearance: grossly normal Mental Status: mental status grossly normal Speech and movement: Clear speech present Affect: normal affect (her normal affect is usually anxious - somewhat) Attitude: cooperative Thought process: Normal thought process present Assessment & Plan Assessment & Plan (1) Irregular menses: Code(s): N92.6 - Irregular menstruation, unspecified Category: Medical (2) Counseling and coordination of care: Code(s): Z71.89 - Other specified counseling Category: Medical (3) Obsessive thinking: Code(s): F42.8 - Other obsessive-compulsive disorder Category: Medical (4) control counseling: Code(s): Z30.09 - Encounter for other general counseling and advice on contraception Category: Medical (5) Rectal bleeding: Comment: minor bleed noted Code(s): K62.5 - Hemorrhage of anus and rectum Category: Medical (6) Chronic constipation: Code(s): K59.09 - Other constipation Category: Medical Plan extensive counseling - control and constipation - hand outs given . coord care w/ her onsite counselor as she seems sometimes to have difficulty in processing all the information. she seemed relieved today - she will wait for november 22 appt unless s/s increase - she will return here. Orders: Orders AMB HCG Urine Test Today N92.6 - Irregular menstruation, unspecified, Z32.02 - Encounter for test, result negative Coding Level of Care Code Est Pt Level 4 (52341) Diagnoses Irregular menses N92.6 Counseling and coordination of care Z71.89 Obsessive thinking F42.8 control counseling Z30.09 Rectal bleeding K62.5 Chronic constipation K59.09 Time Spent (min) 40 Comment extensive counseling and support and coord care
== END ==
PROVIDERS: Visit Provider Nurse Practitioner Family
DX: N92.6 Irregular menstruation, unspecified (principal); Z71.89 Other specified counseling; F42.8 Other obsessive-compulsive disorder; Z30.09 Encounter for other general counseling and advice on contraception; K62.5 Hemorrhage of anus and rectum; K59.09 Other constipation
CPT/HCPCS: 99214